=== PATIENT | female | born 1960 | race Caucasian/White ===

== ENCOUNTER → 2023-05-02 15:19 | Outpatient (REF) | payer OTHER, SELFPAY | LOC: WDC 15:19 | PROVIDERS: ATTENDING PHYSICIAN Family Medicine | DX: Z12.31 Encounter for screening mammogram for malignant neoplasm of breast (principal) | CPT/HCPCS: 77063; 77067 ==

== ENCOUNTER → 2023-05-21 06:35 | Day surgery (SDC) | payer OTHER, SELFPAY | LOC: GI 06:35 | PROVIDERS: ATTENDING PHYSICIAN Internal Medicine Gastroenterology | DX: Z12.11 Encounter for screening for malignant neoplasm of colon (principal); Z80.0 Family history of malignant neoplasm of digestive organs; K64.8 Other hemorrhoids; K57.30 Diverticulosis of large intestine without perforation or abscess without bleeding; D12.3 Benign neoplasm of transverse colon | CPT/HCPCS: 45380; 88305 ==

== ENCOUNTER 2023-09-23 07:49 | Emergency (ER) | payer OTHER, SELFPAY ==
[2023-09-23 07:55] VITALS: BP 160/93
[2023-09-23 08:57] VITALS: BP 137/83; BMI 25.5
--- NOTE | 2023-09-23 09:08 | EDRN ---
Neha Vera [employer] in room w/ pt at this time.
--- NOTE | 2023-09-23 09:14 | ED.GENMED ---
History of Present Illness
General
Chief Complaint: Musculo-Skeletal Complaint
Source: patient
Exam Limitations: none
Time Seen by Provider: 09/23/23 08:49
Nursing documentation reviewed up to this point in time: agreed with
History of Present Illness
History of Present Illness:
Patient is a 62-year-old female who twisted her left ankle on Sunday and complains of left lateral foot pain since. She has pain with weightbearing and is unable to bear full weight on her flat foot. She has been using a walking stick And has
been icing. She denies any other injuries. She denies any pain in her ankle most of pain is in her left lateral foot.
Past History
Past History
ED Past Medical History: None
ED Past Surgical History: Appendectomy and Orthopedic (Knee surg)
Social History
Tobacco: Non-smoker
Alcohol: Occasional
Personal:
Living: with family
Review of Systems
Review of Systems
Allergies reviewed?: Yes
All Other Systems: ROS reviewed and negative except as documented in HPI and ROS
Constitutional: Reports no symptoms; Denies fever, fatigue or chills
Musculoskeletal: Reports other (left lateral foot pain )
Skin: Reports no symptoms
Neurological: Reports no symptoms
Psychiatric: Reports no symptoms
Phy Exam
General Physical Exam
General Presentation: no apparent distress
General age: appears stated age
General Skin: warm and dry
General Habitus: normal
General Mental: alert
General Hydration: appears well hydrated
Neurological Exam
Neurological Exam: alert and oriented x3
Musculoskeletal Exam
Musculoskeletal Exam: other (lle with strong pulses + tenderness to left prox 5th MT region no bony ankle tenderness or prox tib/fib tenderness no abrasions/or ecchymosis ,sm amt of swelling to left lateral foot )
Skin Exam
Skin Exam: normal color and warm/dry
Psychiatric Exam
Psychiatric Exam: normal mood/affect
Course
Orders/Labs/Results
Orders:
Orders
09/23/23 07:53
CR Ankle - Left Min 3 Views Urgent
Comment:
Reason For Exam: rolled ankle on sunday
Foot, Left 3 View [CR Foot - Left Min 3 Views] Urgent
Comment:
Reason For Exam: rolled ankle on sunday
09/23/23 09:14
boot [Ortho Boot Left- Treatment] ONCE
Short or tall?: Short
Vital Signs
Initial and Last Documented VS:
Initial Vital Signs
Temp Pulse Resp BP Pulse Ox
98 F 76 17 160/93 98
09/23/23 07:55 09/23/23 07:55 09/23/23 07:55 09/23/23 07:55 09/23/23 07:55
Last Documented Vital Signs
Temp Pulse Resp BP Pulse Ox
98 F 77 16 137/83 98
09/23/23 07:55 09/23/23 08:57 09/23/23 08:57 09/23/23 08:57 09/23/23 08:57
MDM/Problems Addressed
Differential Diagnosis Includes:
Not limited to fracture for sprain
MDM/Problems Addressed:
Symptoms are consistent with foot sprain . 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 Will DC with a short boot however discussed with
patient the importance of trying to rest and nonweightbearing is much as possible. She does not want crutches. Will DC with outpatient follow-up with family doctor or Ortho if needed
*Radiology
Radiology exam reviewed: radiology read reviewed
*Pulse Oximetry
Patient hypoxic: no
*Critical Care Note
Total Time (30-74mins, 75-104mins- exclusive of procedures): Not Applicable
ED Attending Note
-
Portions of this chart may have been created with voice recognition software.� Occasional wrong word or��sound alike� substitutions may have occurred due to the inherent limitations of voice recognition software.
Discharge Plan
Departure
Patient Disposition: Home (Routine Discharge)
Date of Disposition: 09/23/23
Time of Disposition: 09:41
Patient with high blood pressure during this ER visit?: Yes
Condition: Fair
Covid-19: Not Applicable
Discharge Problem:
Foot sprain
Instructions: Sprain (DC)
Referrals:
Rangel Bryan MD [Active] -
Victorina Walker MD [Family Provider] -
Activity Restrictions/Additional Instructions:
As discussed ice affected area for the first 24 hours 20 to time several times a day. Keep elevated much as possible. Ibuprofen every 8 hours as needed may alternate with Tylenol. Follow-up with family doctor in extremities orthopedics as needed.
Only wear boot for support as needed.
Interventions
Interventions:
*Risk Screen - Suicide Last Done: 09/23/23 07:55
*General Assessment Last Done: 09/23/23 07:55
*Neglect/Abuse Screening Last Done: 09/23/23 07:55
ED- Fall Risk Assessment Last Done: 09/23/23 09:12
*ED COVID-19 Vaccine History Last Done: 09/23/23 07:55
*Nursing Disposition Last Done: 09/23/23 09:48
ED-Musculoskeletal Assessment Last Done: 09/23/23 08:57
Discharge Date and Time
Discharge Date/Time: 09/23/23 09:48
Print Language: TELUGU
== END 2023-09-23 09:48 | disposition home or self-care (01) ==
LOC: EMR 07:49
PROVIDERS: EMERGENCY PHYSICIAN Emergency Medicine; FAMILY PHYSICIAN Family Medicine
DX: S93.602A Unspecified sprain of left foot, initial encounter (principal); X50.1XXA Overexertion from prolonged static or awkward postures, initial encounter; R03.0 Elevated blood-pressure reading, without diagnosis of hypertension
CPT/HCPCS: 99283; 29515; 73610; 73630

== ENCOUNTER 2024-04-16 06:28 | Day surgery (SDC) | payer OTHER, SELFPAY | END 2024-04-16 09:21 | disposition home or self-care (01) | LOC: GI 06:28 | PROVIDERS: ATTENDING PHYSICIAN Internal Medicine Gastroenterology; FAMILY PHYSICIAN Family Medicine | DX: K22.2 Esophageal obstruction (principal); K22.89 Other specified disease of esophagus; K44.9 Diaphragmatic hernia without obstruction or gangrene; K29.30 Chronic superficial gastritis without bleeding; K31.89 Other diseases of stomach and duodenum; R13.10 Dysphagia, unspecified; Q39.9 Congenital malformation of esophagus, unspecified | CPT/HCPCS: 43249; 43239; 88305; 88342 ==

== ENCOUNTER → 2024-06-25 13:11 | Outpatient (REF) | payer OTHER, SELFPAY | LOC: WDC 13:11 | PROVIDERS: ATTENDING PHYSICIAN Family Medicine | DX: Z12.31 Encounter for screening mammogram for malignant neoplasm of breast (principal) | CPT/HCPCS: 77063; 77067 ==

== ENCOUNTER → 2024-07-16 14:52 | Outpatient (REF) | payer OTHER, SELFPAY | LOC: RAD 14:52 | PROVIDERS: ATTENDING PHYSICIAN Nurse Practitioner Adult Health | DX: M89.319 Hypertrophy of bone, unspecified shoulder (principal) | CPT/HCPCS: 73000 ==

== ENCOUNTER → 2024-07-30 07:06 | Outpatient (REF) | payer OTHER, SELFPAY | LOC: RAD 07:06 | PROVIDERS: ATTENDING PHYSICIAN Nurse Practitioner Adult Health; FAMILY PHYSICIAN Family Medicine | DX: S43.201A Unspecified subluxation of right sternoclavicular joint, initial encounter (principal) | CPT/HCPCS: 73202; Q9967 ==

== ENCOUNTER 2025-03-11 10:22 | Emergency (ER) | payer BC, SELFPAY ==
[2025-03-11 10:45] VITALS: BP 128/73
--- NOTE | 2025-03-11 11:42 | ED.GENMED ---
History of Present Illness
General
Chief Complaint: Fall
Time Seen by Provider: 03/11/25 11:30
History of Present Illness
History of Present Illness:
64-year-old female presents to the emergency department for evaluation of bilateral left greater than right knee pain after a fall when slipping on ice. She is able to ambulate but is having difficulty with lateral movement. She has a history of
bilateral ACL reconstruction x 2 on the right and x 1 on the left with a repeat ACL rupture this after repair. She is able to bear weight.
Past History
Past History
ED Past Medical History: None
ED Past Surgical History: Appendectomy and Orthopedic (Knee surg)
Social History
Tobacco: Non-smoker
Alcohol: Occasional
Personal:
Living: with family
Review of Systems
Review of Systems
Allergies reviewed?: Yes
All Other Systems: ROS reviewed and negative except as documented in HPI and ROS
Phy Exam
Physical Exam
Physical Exam:
GEN: Well appearing, NAD, WDWN
HEENT: Oral mucosa moist, no scleral icterus
Cardiac: Regular rate
Lung: No respiratory distress, no tachypnea
MSK: No gross deformity or injuries. No obvious swelling or deformity to the left knee. There is pain with valgus stress however no obvious laxity, range of motion is normal in all bustamante without crepitus. Right knee range of motion normal, no
pain with valgus or varus stress
Skin: Good color, no pallor or jaundice, no rashes
Neuro: AO x3, moves all extremities freely
Psych: Calm, cooperative
Course
Orders/Labs/Results
Orders:
Orders
03/11/25 11:42
CR Knee - Left 4 Or More View* Urgent
Comment:
Reason For Exam: fall injury
Vital Signs
Initial and Last Documented VS:
Initial Vital Signs
Temp Pulse Resp BP Pulse Ox
98.4 F 94 16 128/73 94
03/11/25 10:45 03/11/25 10:45 03/11/25 10:45 03/11/25 10:45 03/11/25 10:45
Last Documented Vital Signs
Temp Pulse Resp BP Pulse Ox
98.4 F 94 16 128/73 94
03/11/25 10:45 03/11/25 10:45 03/11/25 10:45 03/11/25 10:45 03/11/25 11:44
MDM/Problems Addressed
MDM/Problems Addressed:
Knee x-rays independently interpreted by me are negative for acute osseous abnormality. Exam not concerning for MCL or LCL rupture. Knee immobilizer placed for comfort, discussed supportive care and orthopedic follow-up which patient has scheduled
for early next week
*Pulse Oximetry
SaO2: 94
Oxygen Mode of Delivery: Room air
Patient hypoxic: no
*Critical Care Note
Total Time (30-74mins, 75-104mins- exclusive of procedures): Not Applicable
ED Attending Note
-
Portions of this chart may have been created with voice recognition software.� Occasional wrong word or��sound alike� substitutions may have occurred due to the inherent limitations of voice recognition software.
Discharge Plan
Departure
Patient Disposition: Home (Routine Discharge)
Date of Disposition: 03/11/25
Time of Disposition: 13:10
Patient with high blood pressure during this ER visit?: No
Discharge Problem:
Left knee sprain
Instructions: Knee Sprain ED
Referrals:
Victorina Walker MD [Family Provider, Family Practice]
Activity Restrictions/Additional Instructions:
Follow up with Orthopedics as planned next week
Ibuprofen 600mg every 6-8 hours as needed for pain
Ice often, particularly after long periods of activity
Interventions
Interventions:
*General Assessment Last Done: 03/11/25 13:30
*Neglect/Abuse Screening Last Done: 03/11/25 10:45
*ED COVID-19 Vaccine History Last Done: 03/11/25 13:30
*ED Influenza Vaccine History Last Done: 03/11/25 13:30
[facility] Fall Risk Assessment Tool Last Done: 03/11/25 13:30
*Risk Screen - Suicide (C-SSRS) Last Done: 03/11/25 10:45
*Nursing Disposition Last Done: 03/11/25 13:30
ED-Musculoskeletal Assessment Last Done: 03/11/25 13:30
ED- Neurological Assessment Last Done: 03/11/25 13:30
ED-Skin Assessment Last Done: 03/11/25 13:30
Discharge Date and Time
Discharge Date/Time: 03/11/25 13:30
Print Language: FINNISH
== END 2025-03-11 13:30 | disposition home or self-care (01) ==
LOC: EMR 10:22
PROVIDERS: EMERGENCY PHYSICIAN Emergency Medicine; FAMILY PHYSICIAN Family Medicine
DX: S83.92XA Sprain of unspecified site of left knee, initial encounter (principal); W00.0XXA Fall on same level due to ice and snow, initial encounter
CPT/HCPCS: 99283; 29505; 73564